=== PATIENT | female | born 1980 | race Caucasian/White ===

== ENCOUNTER 2020-03-03 22:08 | Emergency (ER) | payer OTHER ==
[2020-03-03] MEDS ORDERED: ASPIRIN 325 MG TAB PO ONE (23:31)
--- NOTE | 2020-03-04 00:08 | XRay Report ---
CHEST 1 VIEW INDICATION: Chest Pain. COMPARISON: None. FINDINGS: Support devices: None. Heart: Within normal limits. Lungs/Pleura: No acute air space or interstitial disease. Additional findings: None. IMPRESSION: No acute abnormality. Signer Name: Carlitos Dillon MD Signed: 03/04/2020 12:03 AM Workstation Name: [id number]
[2020-03-04 00:40] LABS: Basophils % (Auto) 0.4 % (0.0-1.8); Eosinophils # (Auto) 0.2 K/mm3 (0.0-0.4); Eosinophils % (Auto) 2.2 % (0.0-4.3); Hemoglobin 6.3 gm/dl (10.1-14.3); Lymphocytes % (Auto) 26.2 % (13.4-35.0); Mean Corpuscular HGB Conc 32 % (30-34); Mean Corpuscular Volume 84 fl (79-97); Monocytes # (Auto) 0.6 K/mm3 (0.0-0.8); Platelet Count 528 K/mm3 (140-440); Red Blood Count 2.34 M/mm3 (3.65-5.03); Red Cell Distribution Width 15.2 % (13.2-15.2)
[2020-03-04 00:58] LABS: Blood Urea Nitrogen 11 mg/dL (7-17); Calcium 9.9 mg/dL (8.4-10.2); Hemolysis Index 5
[2020-03-04 00:59] LABS: BUN/Creatinine Ratio 16
[2020-03-04 01:14] LABS: Hematocrit 19.7 % (30.3-42.9)
[2020-03-04] MEDS ORDERED: SODIUM CHLORIDE 0.9% 500 ML 500 ML IV ONE (02:03)
--- NOTE | 2020-03-04 02:06 | Emergency Department Report ---
ED General Adult HPI - General Chief complaint: Chest Pain Stated complaint: ARM NUMB,DIZZY,SOB,PULSE RACING,HEADACHE PUI?: No Time Seen by Provider: 03/04/20 01:37 Source: patient Mode of arrival: Ambulatory Limitations: No Limitations - History of Present Illness Initial comments: This is a 40-year-old female with a history of hypothyroidism and vitamin D deficiency who presents with numbness palpitations shortness of breath fatigue since yesterday. She was barely able to walk to the park with her son due to severe fatigue and shortness of breath. With position change her heart rate rapidly increased from 80-130 bpm according to her apple watch. She has bilateral arm numbness. She also has had hand swelling. She denies heavy vaginal bleeding. She denies dark tarry stools. She denies hematemesis. She has a history of mild anemia since the of her son years ago. She does have a history of internal hemorrhoids which causes bright red blood per rectum every few months or so. Routine annual blood work obtained by her PCP revealed hemoglobin 9.5 and hematocrit 30.2 -: Gradual, days(s) (1) Location: chest, left, right, upper extremity Severity scale (0 -10): 6 Consistency: now resolved, other (With rest) Improves with: rest Worsens with: movement, other (Activity) Associated Symptoms: other (Bilateral upper extremity numbness, chest discomfort, palpitations) Treatments Prior to Arrival: none - Related Data Allergies Allergy/AdvReac Type Severity Reaction Status Date / Time No Known Allergies Allergy Verified 03/04/20 01:40 ED Review of Systems ROS: Stated complaint: ARM NUMB,DIZZY,SOB,PULSE RACING,HEADACHE Other details as noted in HPI Comment: All other systems reviewed and negative Constitutional: denies: fever, malaise Respiratory: shortness of breath. denies: cough Cardiovascular: chest pain, palpitations Gastrointestinal: denies: abdominal pain, nausea ED Past Medical Hx - Past Medical History Previous Medical History?: Yes Additional medical history: Thyroid Disease. Vitamin D Deficiency - Surgical History Past Surgical History?: No - Social History Smoking Status: Never Smoker Substance Use Type: None ED Physical Exam - General Limitations: No Limitations General appearance: alert, in no apparent distress - Head Head exam: Present: atraumatic, normocephalic - Eye Eye exam: Present: normal appearance - ENT ENT exam: Present: mucous membranes moist - Neck Neck exam: Present: normal inspection, full ROM - Respiratory Respiratory exam: Present: normal lung sounds bilaterally. Absent: respiratory distress, wheezes, rales, rhonchi - Cardiovascular Cardiovascular Exam: Present: regular rate, normal rhythm, normal heart sounds. Absent: systolic murmur, diastolic murmur, rubs, gallop - GI/Abdominal GI/Abdominal exam: Present: soft, normal bowel sounds. Absent: distended, tenderness, guarding, rebound - Extremities Exam Extremities exam: Present: normal inspection - Neurological Exam Neurological exam: Present: alert, oriented X3 - Psychiatric Psychiatric exam: Present: normal affect, normal mood - Skin Skin exam: Present: warm, dry, intact, normal color. Absent: rash ED Course Vital Signs 03/03/20 23:00 Temperature 97.9 F Pulse Rate 112 H Respiratory 20 Rate Blood Pressure 147/86 O2 Sat by Pulse 100 Oximetry ED Medical Decision Making - Lab Data Result diagrams: 03/03/20 23:34 03/03/20 23:34 - Radiology Data Radiology results: report reviewed - Medical Decision Making Symptomatic anemia with chest pain palpitations increased heart rate numbness. D-dimer negative. Troponin x2- Patient will be discharged after she receives 1 unit packed red blood cells. She denies vaginal bleeding or signs of GI bleed. She will need outpatient evaluation for severe anemia. Critical care attestation.: If time is entered above; I have spent that time in minutes in the direct care of this critically ill patient, excluding procedure time. ED Disposition Clinical Impression: Symptomatic anemia Disposition: DC-01 TO HOME OR SELFCARE Is pt being admited?: No Does the pt Need Aspirin: No Condition: Stable Instructions: Anemia (ED) Additional Instructions: Please inform your primary physician that your hemoglobin was 6.3 and your hematocrit was 19. Please let your doctor know that you received 1 unit blood transfusion.. Referrals: PRIMARY CARE, [Referring] - [facility]
[2020-03-04] MEDS ORDERED: SODIUM CHLORIDE 0.9% 500 ML 500 ML ONE (04:07)
[2020-03-04 06:40] VITALS: BP 111/64
== END 2020-03-04 07:16 | disposition home or self-care (01) ==
LOC: ED 22:08
DX: D64.89 Other specified anemias (principal)
CPT/HCPCS: 36415; 36430; 71045; 80048; 84484; 85025; 85379; 86850; 86900; 86901; 86920; 93005; 96360; 99284; J7040; P9016